=== PATIENT | male | born 1955 | race Caucasian/White ===

== ENCOUNTER 2019-09-18 06:27 | Day surgery (SDC) | payer OTHER ==
[~2019-09-18 06:27] MED LIST: LACTATED RINGERS 1,000 ML IV ONE
[2019-09-18 08:45] VITALS: BP 128/60
== END 2019-09-18 06:28 | disposition home or self-care (01) ==
LOC: SDS 06:27
PROVIDERS: ATTEND Surgery
PROC: 0DBH8ZZ Excision of Cecum, Via Natural or Artificial Opening Endoscopic (ICD-10-PCS; principal; 2019-09-18 07:30)
DX: Z12.11 Encounter for screening for malignant neoplasm of colon (principal); D12.0 Benign neoplasm of cecum; I10 Essential (primary) hypertension; Z87.891 Personal history of nicotine dependence
CPT/HCPCS: 45380; J7120

== ENCOUNTER 2020-06-22 12:55 | Outpatient (CLI) | payer OTHER ==
--- NOTE | 2020-06-22 15:48 | Ultrasound Report ---
PROCEDURE: Carotid Doppler Complete INDICATIONS: CAROTID ARTERIAL DISEASE TECHNIQUE: Color and pulse Doppler interrogation was performed of both carotid systems, with image documentation and velocity measurements. COMPARISON: None. FINDINGS: Carotid Doppler 07/15/2010 Right side: Common carotid artery peak systolic velocity: 98 cm/sec. Internal carotid artery peak systolic velocity: 70 cm/sec. Internal carotid artery end diastolic velocity: 27 cm/sec. External carotid artery peak systolic velocity: 103 cm/sec. ICA/CCA peak systolic ratio: 0.7 . Dong scale imaging description: No visualized plaque Percent internal carotid artery stenosis: No hemodynamically significant stenosis . Vertebral artery: Flow direction is antegrade. Left side: Common carotid artery peak systolic velocity: 84 cm/sec. Internal carotid artery peak systolic velocity: 63 cm/sec. Internal carotid artery end diastolic velocity: 29 cm/sec. External carotid artery peak systolic velocity: 77 cm/sec. ICA/CCA peak systolic ratio: 0.8 . Dong scale imaging description: No visualized plaque Percent internal carotid artery stenosis: No hemodynamically significant stenosis . Vertebral artery: Flow direction is antegrade. IMPRESSION: No hemodynamically significant stenosis within the internal carotid arteries bilaterally. Stable inte rval exam. The estimate of stenosis included in the report of the imaging study was calculated using the NASCET method Reviewed by: Lesvia Hetah MD on 06/22/2020 3:46 PM PST Approved by: Lesvia Heath MD on 06/22/2020 3:46 PM PST Station ID: [id number]
== END 2020-06-22 12:56 | disposition home or self-care (01) ==
LOC: DI 12:55
PROVIDERS: ATTEND Family Medicine
DX: I77.9 Disorder of arteries and arterioles, unspecified (principal)
CPT/HCPCS: 93880

== ENCOUNTER 2020-06-24 08:51 | Outpatient (CLI) | payer OTHER ==
--- NOTE | 2020-06-24 15:39 | CT Report ---
PROCEDURE: Low Dose Lung Cancer Screen INDICATIONS: HX OF SMOKING TECHNIQUE: Noncontrast low-dose 5 mm thick sections acquired from the pulmonary apices to the posterior costophr enic angles. 7 mm thick coronal and sagittal MIP reformats were then acquired. For radiation dose r eduction, the following was used: automated exposure control, adjustment of mA and/or kV according t o patient size. COMPARISON: None. FINDINGS: Image quality: Excellent. Lungs and pleura: Centrilobular emphysema appears moderate in severity. No early manifestation of erwin ng carcinoma is identified. Mediastinum: Heart size is normal. No pericardial effusion. There is no identified coronary artery calcification. No mediastinal adenopathy by size criteria. Thoracic aorta and central pulmonary art eries are normal in size. Esophagus is normal in caliber. No hiatal hernia. Bones and chest wall: No suspicious bony lesions. No vertebral body compression fractures. No axil марина or supraclavicular adenopathy by size criteria. The thyroid is normal in size. Abdomen: Visualized upper abdomen solid organs and bowel loops appear normal in the absence of contr ast. IMPRESSION: No early manifestation of underlying lung carcinoma is found. Moderate centrilobular emphysema. No co ronary artery calcifications seen. Lung RADS category 1, follow-up screening CT in one year is recommended. Reviewed by: Avelino Bonilla MD on 06/24/2020 3:37 PM PST Approved by: Avelino Bonilla MD on 06/24/2020 3:37 PM PST Station ID: [id number]
== END 2020-06-24 08:52 | disposition home or self-care (01) ==
LOC: DI 08:51
PROVIDERS: ATTEND Family Medicine
DX: Z12.2 Encounter for screening for malignant neoplasm of respiratory organs (principal); J43.2 Centrilobular emphysema; Z87.891 Personal history of nicotine dependence
CPT/HCPCS: G0297 ×2